=== PATIENT | female | born 1950 | race Hispanic/Latino ===

== ENCOUNTER 2021-01-15 09:48 | Emergency (ER) | payer MEDICARE ==
[~2021-01-15] VITALS: Ht 152.4 cm; Wt 62.1 kg
[2021-01-15 09:50] VITALS: BP 148/83
[2021-01-15 09:51] VITALS: BP 148/83
[2021-01-15 10:28] LABS: APPEARANCE,URINE CLOUDY (CLEAR); BILIRUBIN,URINE NEGATIVE (NEGATIVE); COLOR,URINE YELLOW (YELLOW); GLUCOSE, URINE (UA) NEGATIVE (NEGATIVE); KETONES,URINE NEGATIVE (NEGATIVE); LEUKOCYTE ESTERASE ,URINE LARGE (NEGATIVE); NITRATE,URINE NEGATIVE (NEGATIVE); OCCULT BLOOD,URINE LARGE (NEGATIVE); PROTEIN,URINE 30 mg/dL (NEGATIVE); UROBILINOGEN,URINE 0.2 mg/dL (0.2-1.0)
[2021-01-15 10:44] LABS: BACTERIA,URINE Moderate /HPF (None Seen); WBC,URINE TNTC /HPF (0-1)
[2021-01-15 10:45] LABS: SQUAMOUS EPITHELIAL CELL,UR 0-2 /HPF (0-2)
[2021-01-15] MEDS: CEFTRIAXONE 1G VIAL IM SCH (11:30)
[2021-01-15] MEDS ORDERED: MACR100 PO (11:47)
[2021-01-15] MEDS ORDERED: PHEN-847 PO (11:48)
[2021-01-15] MEDS: CEFTRIAXONE 1G VIAL ONE (11:52)
[2021-01-15] MEDS: LIDOCAINE HCL-MPF 1% 2ML VIAL ONE (11:52)
== END 2021-01-15 12:04 | disposition home or self-care (01) ==
LOC: EDH 09:48
DX: N39.0 Urinary tract infection, site not specified (principal); R30.0 Dysuria; E78.00 Pure hypercholesterolemia, unspecified; Z88.2 Allergy status to sulfonamides
CPT/HCPCS: 81001; 87077; 87088; 87186; 96372; 99283; J0696; J3490